=== PATIENT | male | born 1995 | race Caucasian/White ===

== ENCOUNTER 2018-02-24 22:02 | Emergency (ER) | payer BC ==
[~2018-02-24] VITALS: Ht 177.8 cm; Wt 155.6 kg
[~2018-02-24 22:02] MED LIST: NOHOMEMEDS
[2018-02-24 23:17] LABS: HEMOGLOBIN 12.8 G/DL (12.5-16.6); MCH 29.5 PG (29.0-34.0); MCHC 34.6 G/DL (30.0-36.0); MCV 85.3 FL (86-99); PLATELET COUNT 229 K/uL (156-360); RBC DIS.WIDTH-CV 12.7 % (11.8-14.6); RBC DIS.WIDTH-SD 38.8 % (39-53); RED BLOOD COUNT 4.34 M/uL (4.00-5.50); WHITE BLOOD COUNT 10.1 K/uL (4.1-10.2)
[2018-02-24 23:24] LABS: ALBUMIN 4.5 g/dL (3.2-4.8)
[2018-02-24 23:25] LABS: CHLORIDE 109 mEq/L (99-109); POTASSIUM 4.1 mEq/L (3.7-5.4); SODIUM 142 mEq/L (136-147)
[2018-02-24 23:27] LABS: GLUCOSE 128 mg/dL (70-99); TOTAL PROTEIN 7.4 g/dL (6.4-8.3)
[2018-02-24 23:29] LABS: TOTAL BILIRUBIN 0.5 mg/dL (0.0-1.0)
[2018-02-24 23:30] LABS: ALKALINE PHOSPHATASE 88 IU/L (3-129); SERUM ETHYL ALCOHOL 99 mg/dL
[2018-02-24 23:31] LABS: GFR ESTIMATE (CALCULATED) > 59 mL/min/ (58.99-99999)
[2018-02-24 23:32] LABS: AST (GOT) 39 IU/L (2-34); UREA NITROGEN (BUN) 13 mg/dL (9-23)
[2018-02-24 23:34] LABS: ALT (GPT) 74 IU/L (3-49)
[2018-02-24] MEDS ORDERED: ZOFRAN4 MG PO (23:49)
[2018-02-25 00:37] VITALS: BP 140/76
== END 2018-02-25 00:58 | disposition home or self-care (01) ==
LOC: EME 22:02
PROVIDERS: Nurse Practitioner Family
DX: F10.129 Alcohol abuse with intoxication, unspecified (principal); R11.2 Nausea with vomiting, unspecified; Y90.4 Blood alcohol level of 80-99 mg/100 ml; Z87.891 Personal history of nicotine dependence
CPT/HCPCS: 80053; 85027; 99281; 99284; G0480; J2405; J7030